=== PATIENT | male | born 1955 | race Caucasian/White ===

== ENCOUNTER 2017-10-02 16:41 | Emergency (ER) | payer MEDICARE, OTHER ==
[2017-10-02 18:31] LABS: ADD MAN DIFF? NO
[2017-10-02 18:32] LABS: HEMATOCRIT 27.2 % (42.0-52.0); HEMOGLOBIN 8.2 g/dl (14.0-18.0); MEAN CORPUSCULAR HEMOGLOBIN 25.4 pg (29.0-33.0); MEAN CORPUSCULAR HGB CONC 30.1 g/dl (32.0-37.0); MEAN CORPUSCULAR VOLUME 84.2 fl (82.0-101.0); MEAN PLATELET VOLUME 8.7 fl (7.4-10.4); PLATELET COUNT 587 10^3/UL (140-415); POSITIVE DIFF @See below; RED BLOOD COUNT 3.23 10^6/ul (4.70-6.10); RED CELL DISTRIBUTION WIDTH 19.1 % (11.5-14.5)
[2017-10-02 18:32] LABS: WHITE BLOOD COUNT 9.2 10^3/ul (4.8-10.8)
[2017-10-02 19:00] LABS: ANION GAP 15 (8-16); BLOOD UREA NITROGEN 15 mg/dl (7-20); CALCIUM 8.7 mg/dl (8.4-10.2); CARBON DIOXIDE 26 mmol/L (21-31); CHLORIDE 107 mmol/L (97-110); CREATININE 0.95 mg/dl (0.61-1.24); GLUCOSE 94 mg/dl (70-220); POTASSIUM 3.9 mmol/L (3.5-5.1); SODIUM 144 mmol/L (135-144)
[2017-10-02 19:43] LABS: ANISOCYTOSIS 1+ (0-0); BASOPHIL #M 0.2 10^3/ul (0.0-0.0); BASOPHILS % (M) 3 % (0-2); EOSINOPHILS % (M) 3 % (0-7); LYMPHOCYTES #M 1.9 10^3/ul (0.8-2.9); LYMPHOCYTES % (M) 21 % (15-51); MONOCYTE #M 0.4 10^3/ul (0.3-0.9); MONOCYTES % (M) 5 % (0-11); PLATELET ESTIMATE INCREASED; POIKILOCYTOSIS 1+ (0-0); POLYCHROMASIA 1+ (0-0); SEGMENTED NEUTROPHILS (M) % 68 % (39-77); SMUDGE%M 1 % (0-0)
[2017-10-02] MEDS: IOHEXOL 300MG/ML 150 ML BTL (20:49)
[2017-10-02] MEDS: SOD CHLORIDE 0.9% 100 ML (20:49)
[2017-10-02] MEDS: morphine 2 MG INJ IV (21:25)
[2017-10-02] MEDS: ONDANSETRON 4 MG INJ IV (23:24)
[2017-10-02] MEDS: KETOROLAC 30 MG INJ IV (23:24)
== END 2017-10-03 09:27 | disposition home or self-care (01) ==
LOC: E/R 16:41
DX: S80.11XA Contusion of right lower leg, initial encounter (principal); J44.9 Chronic obstructive pulmonary disease, unspecified; I10 Essential (primary) hypertension; F17.210 Nicotine dependence, cigarettes, uncomplicated; R40.2142 Coma scale, eyes open, spontaneous, at arrival to emergency department; R40.2252 Coma scale, best verbal response, oriented, at arrival to emergency department; R40.2362 Coma scale, best motor response, obeys commands, at arrival to emergency department; W05.0XXA Fall from non-moving wheelchair, initial encounter; Y92.9 Unspecified place or not applicable; Z96.651 Presence of right artificial knee joint; Z96.641 Presence of right artificial hip joint; Z79.82 Long term (current) use of aspirin
CPT/HCPCS: 71045; 71260; 73510; 73550; 73564; 73590; 80048; 85025; 93005; 93971; 96374; 96375; 99285-25

== ENCOUNTER 2017-11-28 17:22 | Inpatient (IN) | payer MEDICARE, MEDICAID ==
[2017-11-28] MEDS ORDERED: NITROGLYCERIN (SL) 0.4 MG TAB SL ×2 (17:30→20:30)
[2017-11-28 17:41] LABS: ADD MAN DIFF? NO
[2017-11-28 17:43] LABS: BASOPHIL # 0.2 10^3/ul (0.0-0.1); BASOPHILS % 1.9 % (0.0-2.0); EOSINOPHILS # 0.2 10^3/ul (0.0-0.5); EOSINOPHILS % 1.8 % (0.0-7.0); HEMATOCRIT 27.4 % (42.0-52.0); HEMOGLOBIN 8.2 g/dl (14.0-18.0); LYMPHOCYTES # 1.3 10^3/ul (0.8-2.9); LYMPHOCYTES % 14.5 % (15.0-51.0); MEAN CORPUSCULAR HEMOGLOBIN 25.2 pg (29.0-33.0); MEAN CORPUSCULAR HGB CONC 29.9 g/dl (32.0-37.0); MEAN CORPUSCULAR VOLUME 84.3 fl (82.0-101.0); MEAN PLATELET VOLUME 9.4 fl (7.4-10.4); MONOCYTE # 1.2 10^3/ul (0.3-0.9); MONOCYTES % 13.6 % (0.0-11.0); NEUTROPHIL # 5.9 10^3/ul (1.6-7.5); NEUTROPHILS % 67.7 % (39.0-77.0); PLATELET COUNT 443 10^3/UL (140-415); RED BLOOD COUNT 3.25 10^6/ul (4.70-6.10); RED CELL DISTRIBUTION WIDTH 17.9 % (11.5-14.5)
[2017-11-28 17:43] LABS: WHITE BLOOD COUNT 8.8 10^3/ul (4.8-10.8)
[2017-11-28] MEDS: morphine 4 MG/ML VIAL IV (17:48)
[2017-11-28] MEDS: SOD CHLORIDE 0.9% 500 ML IV (17:48)
[2017-11-28] MEDS: ONDANSETRON 4 MG INJ IV ×3 (17:48→21:42)
[2017-11-28] MEDS: DILTIAZEM 25 MG INJ IV (17:49)
[2017-11-28] MEDS: MAGNESIUM SULFATE 2 GM/50 ML 50 ML IVPB (17:49)
[2017-11-28] MEDS: DILTIAZEM-D5W 125MG/125ML DRIP 125 ML IV (17:49)
[2017-11-28] MEDS: ASPIRIN 81 MG TAB PO (17:54)
[2017-11-28 18:06] LABS: BLOOD UREA NITROGEN 15 mg/dl (7-20); CALCIUM 8.7 mg/dl (8.4-10.2); CARBON DIOXIDE 24 mmol/L (21-31); CHLORIDE 101 mmol/L (97-110); CREATININE 0.98 mg/dl (0.61-1.24); GLUCOSE 97 mg/dl (70-220); POTASSIUM 4.1 mmol/L (3.5-5.1)
[2017-11-28 18:10] LABS: INR 0.97
[2017-11-28] MEDS: DILTIAZEM (CD) 180 MG CAP PO (18:33)
[2017-11-28 18:37] LABS: ANION GAP 21 (8-16); SODIUM 142 mmol/L (135-144); TROPONIN-I < 0.012 ng/ml (0.00-0.12)
[2017-11-28] MEDS: HYDROmorphONE 1 MG/5 ML IV SYRINGE IV (18:45)
[2017-11-28] MEDS ORDERED: ONDANSETRON 4 MG INJ IV (19:00)
[2017-11-28] MEDS ORDERED: ACETAMINOPHEN 325 MG TAB PO (19:00)
[2017-11-28] MEDS: hydrALAzine 20 MG INJ IV (19:38)
[2017-11-28] MEDS ORDERED: NACL 0.9% 3 ML SYG IV (20:30)
[2017-11-28 20:50] LABS: MAGNESIUM 1.8 mg/dl (1.7-2.5)
[2017-11-28] MEDS ORDERED: DIAZEPAM 5 MG TAB PO (21:00)
[2017-11-28 21:17] LABS: THYROID STIMULATING HORMONE 0.902 MIU/L (0.465-4.680)
[2017-11-28] MEDS: LIDOCAINE 2% VISC 15 ML CUP PO (21:42)
[2017-11-28] MEDS: LORAZEPAM 2 MG INJ IV (21:42)
[2017-11-28] MEDS: PANTOPRAZOLE IV 80 MG in SOD CHLORIDE 0.9% 100 ML IVPB (21:43)
[2017-11-28] MEDS ORDERED: HYDROmorphONE 4 MG TAB PO (22:00)
[2017-11-28] MEDS: PANTOPRAZOLE IV 80 MG in SOD CHLORIDE 0.9% 100 ML IV (22:08)
[2017-11-28] MEDS: MULTIVITAMINS 10 ML, THIAMINE 100 MG, FOLIC ACID 1 MG in SOD CHLORIDE 0.9% 1,000 ML IVPB (23:30)
[2017-11-28 23:41] LABS: HEMOGLOBIN 8.9 g/dl (14.0-18.0)
[2017-11-29] MEDS: HYDROmorphONE 0.5 MG/0.5 ML SYG IV ×6 (00:24→21:36)
[2017-11-29] MEDS: PANTOPRAZOLE IV 80 MG in SOD CHLORIDE 0.9% 100 ML IV ×3 (00:25→19:30)
[2017-11-29] MEDS ORDERED: DILTIAZEM-D5W 125MG/125ML DRIP 125 ML IV ×2 (00:30)
[2017-11-29] MEDS: AL HYDROX/MG HYDROX/SIMETH 30 ML CUP PO ×3 (01:25→19:23)
[2017-11-29] MEDS ORDERED: DIAZEPAM 5 MG/ML SYG IV (01:30)
[2017-11-29] MEDS: DIAZEPAM 5 MG/ML SYG IV ×2 (01:57→01:58)
[2017-11-29] MEDS: ONDANSETRON 4 MG INJ IV (05:20)
[2017-11-29] MEDS: MULTIVITAMINS 10 ML, THIAMINE 100 MG, FOLIC ACID 1 MG in SOD CHLORIDE 0.9% 1,000 ML IVPB (08:09)
[2017-11-29 08:59] LABS: ADD MAN DIFF? NO
[2017-11-29] MEDS ORDERED: ASPIRIN 81 MG TAB PO (09:00)
[2017-11-29 09:05] LABS: BASOPHIL # 0.1 10^3/ul (0.0-0.1); BASOPHILS % 0.7 % (0.0-2.0); EOSINOPHILS # 0.2 10^3/ul (0.0-0.5); EOSINOPHILS % 1.8 % (0.0-7.0); HEMATOCRIT 27.2 % (42.0-52.0); HEMOGLOBIN 8.1 g/dl (14.0-18.0); LYMPHOCYTES # 0.9 10^3/ul (0.8-2.9); LYMPHOCYTES % 9.6 % (15.0-51.0); MEAN CORPUSCULAR HEMOGLOBIN 25.9 pg (29.0-33.0); MEAN CORPUSCULAR HGB CONC 29.8 g/dl (32.0-37.0); MEAN CORPUSCULAR VOLUME 86.9 fl (82.0-101.0); MEAN PLATELET VOLUME 9.6 fl (7.4-10.4); MONOCYTE # 1.5 10^3/ul (0.3-0.9); MONOCYTES % 16.1 % (0.0-11.0); NEUTROPHIL # 6.5 10^3/ul (1.6-7.5); NEUTROPHILS % 71.3 % (39.0-77.0); PLATELET COUNT 422 10^3/UL (140-415); RED BLOOD COUNT 3.13 10^6/ul (4.70-6.10)
[2017-11-29 09:05] LABS: WHITE BLOOD COUNT 9.1 10^3/ul (4.8-10.8)
[2017-11-29 09:26] LABS: HEMOGLOBIN A1C 5.4 % (0-5.9)
[2017-11-29 09:28] LABS: ALANINE AMINOTRANSFERASE 15 IU/L (13-69); ALBUMIN 3.1 g/dl (3.3-4.9); ALKALINE PHOSPHATASE 108 IU/L (42-121); ANION GAP 15 (8-16); ASPARTATE AMINO TRANSFERASE 20 IU/L (15-46); BILIRUBIN,INDIRECT 0.1 mg/dl (0-1.1); BILIRUBIN,TOTAL 0.1 mg/dl (0.2-1.3); BLOOD UREA NITROGEN 15 mg/dl (7-20); CALCIUM 8.4 mg/dl (8.4-10.2); CARBON DIOXIDE 27 mmol/L (21-31); CHLORIDE 105 mmol/L (97-110); CHOLESTEROL 129 mg/dl (100-200); CREATININE 0.89 mg/dl (0.61-1.24); GLUCOSE 82 mg/dl (70-220); HDL CHOLESTEROL 64 mg/dl (30-78); LDL CHOLESTEROL,CALCULATED 44 mg/dl; POTASSIUM 4.2 mmol/L (3.5-5.1); SODIUM 143 mmol/L (135-144); TOTAL PROTEIN 6.2 g/dl (6.1-8.1); TRIGLYCERIDES 103 mg/dl (0-149)
[2017-11-29 11:46] LABS: AMPHETAMINE/METHAMPHETAMINE Negative (NEGATIVE); COCAINE Negative (NEGATIVE)
[2017-11-29 11:49] LABS: BARBITURATES Positive (NEGATIVE)
[2017-11-29 11:50] LABS: BENZODIAZEPINES Positive (NEGATIVE); CANNABINOIDS Positive (NEGATIVE); OPIATES Positive (NEGATIVE)
[2017-11-29 14:09] LABS: HEMATOCRIT 27.9 % (42.0-52.0); HEMOGLOBIN 8.3 g/dl (14.0-18.0)
[2017-11-29] MEDS: FAMOTIDINE 20 MG INJ IV (15:50)
[2017-11-29] MEDS ORDERED: DILTIAZEM 50 MG INJ IV (20:00)
[2017-11-29 20:30] LABS: HEMATOCRIT 27.3 % (42.0-52.0); HEMOGLOBIN 8.2 g/dl (14.0-18.0)
[2017-11-29] MEDS: CLONIDINE 0.1 MG/24 HR PATCH TRANSDERM (21:35)
[2017-11-29] MEDS: LORAZEPAM 2 MG INJ IV ×2 (21:57→23:46)
[2017-11-30 01:18] LABS: HEMATOCRIT 28.1 % (42.0-52.0); HEMOGLOBIN 8.6 g/dl (14.0-18.0)
[2017-11-30 01:37] LABS: CREATINE KINASE 29 IU/L (23-200)
[2017-11-30] MEDS: HYDROmorphONE 0.5 MG/0.5 ML SYG IV ×2 (01:38→05:31)
[2017-11-30 01:53] LABS: CK-MB 0.86 ng/ml (0.0-2.4); TROPONIN-I < 0.012 ng/ml (0.00-0.12)
[2017-11-30] MEDS: hydrALAzine 20 MG INJ IV ×2 (04:30→08:54)
[2017-11-30] MEDS: PANTOPRAZOLE IV 80 MG in SOD CHLORIDE 0.9% 100 ML IV ×3 (05:44→16:30)
[2017-11-30] MEDS: AL HYDROX/MG HYDROX/SIMETH 30 ML CUP PO ×2 (07:04→18:39)
[2017-11-30] MEDS: HYDROmorphONE 2 MG TAB PO ×3 (08:45→20:42)
[2017-11-30] MEDS: MULTIVITAMINS 10 ML, THIAMINE 100 MG, FOLIC ACID 1 MG in SOD CHLORIDE 0.9% 1,000 ML IVPB (08:55)
[2017-11-30] MEDS: ONDANSETRON 4 MG INJ IV (10:43)
[2017-11-30] MEDS: LOSARTAN 25 MG TAB PO ×2 (12:23→20:41)
[2017-11-30] MEDS: PROPOFOL 20 ML ×2 (17:10→17:41)
[2017-11-30] MEDS ORDERED: hydrALAzine 20 MG INJ IV (17:30)
[2017-11-30] MEDS ORDERED: EPHEDrine SULFATE 50 MG/5 ML SYG IV (17:30)
[2017-11-30] MEDS ORDERED: LABETALOL HCL 20MG INJ IV (17:30)
[2017-11-30] MEDS ORDERED: FENTAnyl 50 MCG/ML VIAL IV ×3 (17:30)
[2017-11-30] MEDS: LORAZEPAM 2 MG INJ IV (22:23)
[2017-11-30 23:18] LABS: HAAIG REFLEX REFLEX FILED
[2017-11-30 23:25] LABS: HEMOGLOBIN 8.3 g/dl (14.0-18.0); MEAN CORPUSCULAR HEMOGLOBIN 25.2 pg (29.0-33.0); MEAN CORPUSCULAR HGB CONC 29.6 g/dl (32.0-37.0); MEAN CORPUSCULAR VOLUME 85.1 fl (82.0-101.0); MEAN PLATELET VOLUME 9.9 fl (7.4-10.4); PLATELET COUNT 354 10^3/UL (140-415); POSITIVE DIFF @See below; RED BLOOD COUNT 3.29 10^6/ul (4.70-6.10); RED CELL DISTRIBUTION WIDTH 17.9 % (11.5-14.5)
[2017-11-30 23:25] LABS: WHITE BLOOD COUNT 6.8 10^3/ul (4.8-10.8)
[2017-11-30 23:43] LABS: ANION GAP 10 (8-16); BLOOD UREA NITROGEN 14 mg/dl (7-20); CALCIUM 8.8 mg/dl (8.4-10.2); CARBON DIOXIDE 26 mmol/L (21-31); CHLORIDE 105 mmol/L (97-110); CREATINE KINASE 29 IU/L (23-200); CREATININE 0.88 mg/dl (0.61-1.24); GLUCOSE 102 mg/dl (70-220); POTASSIUM 4.3 mmol/L (3.5-5.1); SODIUM 137 mmol/L (135-144)
[2017-11-30 23:57] LABS: CK INDEX 3.4
[2017-11-30 23:59] LABS: TROPONIN-I < 0.012 ng/ml (0.00-0.12)
[2017-12-01 00:15] LABS: HEPATITIS B SURFACE ANTIGEN NEGATIVE (NEGATIVE)
[2017-12-01 00:32] LABS: HEPATITIS B CORE ANTIBODY REACTIVE (NEGATIVE)
[2017-12-01 00:33] LABS: HEPATITIS C VIRAL ANTIBODY REACTIVE (NEGATIVE); HIV 1&2 ANTIBODY NEGATIVE (NEGATIVE)
[2017-12-01 01:15] LABS: ADD MAN DIFF? YES
[2017-12-01] MEDS: LORAZEPAM 2 MG INJ IV ×5 (01:19→23:20)
[2017-12-01] MEDS: PANTOPRAZOLE IV 80 MG in SOD CHLORIDE 0.9% 100 ML IV ×3 (02:05→22:23)
[2017-12-01 02:10] LABS: ANISOCYTOSIS 1+ (0-0); BAND NEUTROPHILS #M 0.1 10^3/ul (0.0-0.6); BAND NEUTROPHILS % (M) 2 % (0-4); BASOPHIL #M 0.1 10^3/ul (0.0-0.0); BASOPHILS % (M) 2 % (0-2); EOSINOPHILS % (M) 1 % (0-7); GIANT THROMBO% (M) 3 % (0-0); LYMPHOCYTES #M 0.8 10^3/ul (0.8-2.9); LYMPHOCYTES % (M) 12 % (15-51); METAMYELOCYTES %M 1 % (0-0); MONOCYTE #M 0.9 10^3/ul (0.3-0.9); MONOCYTES % (M) 14 % (0-11); MYELOCYTES % (M) 1 % (0-0); PLATELET ESTIMATE NORMAL; SEG NEUT #M 4.5 10^3/ul (1.6-7.5); SEGMENTED NEUTROPHILS (M) % 66 % (39-77); SMUDGE%M 6 % (0-0)
[2017-12-01] MEDS: HYDROmorphONE 2 MG TAB PO ×4 (03:03→22:22)
[2017-12-01] MEDS: LOSARTAN 25 MG TAB PO ×2 (09:24→22:23)
[2017-12-01] MEDS: MULTIVITAMINS 10 ML, THIAMINE 100 MG, FOLIC ACID 1 MG in SOD CHLORIDE 0.9% 1,000 ML IVPB (09:24)
[2017-12-01] MEDS: AL HYDROX/MG HYDROX/SIMETH 30 ML CUP PO ×2 (09:24→17:32)
[2017-12-01] MEDS ORDERED: AMLODIPINE 5 MG TAB PO (13:00)
[2017-12-01] MEDS: METOPROLOL 25 MG TAB PO (22:23)
[2017-12-02] MEDS: LORAZEPAM 2 MG INJ IV ×3 (02:57→11:04)
[2017-12-02] MEDS: hydrALAzine 20 MG INJ IV (02:57)
[2017-12-02] MEDS: AL HYDROX/MG HYDROX/SIMETH 30 ML CUP PO (02:57)
[2017-12-02] MEDS: HYDROmorphONE 2 MG TAB PO ×3 (04:15→16:00)
[2017-12-02] MEDS: PANTOPRAZOLE IV 80 MG in SOD CHLORIDE 0.9% 100 ML IV ×2 (06:52→17:30)
[2017-12-02 07:41] LABS: URINE DRUG SCREEN RESULT DRUG(S) DETECTED:
[2017-12-02 08:33] LABS: ABNORMAL IP MESSAGE 1; HEMATOCRIT 27.8 % (42.0-52.0); HEMOGLOBIN 8.4 g/dl (14.0-18.0); MEAN CORPUSCULAR HEMOGLOBIN 25.2 pg (29.0-33.0); MEAN CORPUSCULAR HGB CONC 30.2 g/dl (32.0-37.0); MEAN CORPUSCULAR VOLUME 83.5 fl (82.0-101.0); MEAN PLATELET VOLUME 9.7 fl (7.4-10.4); PLATELET COUNT 450 10^3/UL (140-415); POSITIVE DIFF @See below; RED BLOOD COUNT 3.33 10^6/ul (4.70-6.10); RED CELL DISTRIBUTION WIDTH 17.8 % (11.5-14.5)
[2017-12-02 08:33] LABS: WHITE BLOOD COUNT 9.2 10^3/ul (4.8-10.8)
[2017-12-02] MEDS: METOPROLOL 25 MG TAB PO (08:37)
[2017-12-02] MEDS: ACETAMINOPHEN 325 MG TAB PO (08:37)
[2017-12-02] MEDS: LOSARTAN 25 MG TAB PO (08:37)
[2017-12-02 08:39] LABS: ADD MAN DIFF? YES
[2017-12-02] MEDS: MULTIVITAMINS 10 ML, THIAMINE 100 MG, FOLIC ACID 1 MG in SOD CHLORIDE 0.9% 1,000 ML IVPB (08:45)
[2017-12-02 08:52] LABS: ANION GAP 16 (8-16); BLOOD UREA NITROGEN 15 mg/dl (7-20); CALCIUM 9.3 mg/dl (8.4-10.2); CARBON DIOXIDE 23 mmol/L (21-31); CHLORIDE 104 mmol/L (97-110); CREATININE 0.91 mg/dl (0.61-1.24); GLUCOSE 104 mg/dl (70-220); POTASSIUM 3.9 mmol/L (3.5-5.1); SODIUM 139 mmol/L (135-144)
[2017-12-02 10:17] LABS: ANISOCYTOSIS 2+ (0-0); BAND NEUTROPHILS % (M) 1 % (0-4); EOSINOPHILS % (M) 1 % (0-7); GIANT THROMBO% (M) 1 % (0-0); HYPOCHROMASIA 2+ (0-0); LYMPHOCYTES #M 1.4 10^3/ul (0.8-2.9); LYMPHOCYTES % (M) 16 % (15-51); MICROCYTOSIS 1+ (0-0); MONOCYTE #M 1.5 10^3/ul (0.3-0.9); MONOCYTES % (M) 17 % (0-11); PLATELET ESTIMATE INCREASED; POLYCHROMASIA 1+ (0-0); REACTIVE LYMPHOCYTES% (M) 1 % (0-0); SEG NEUT #M 5.9 10^3/ul (1.6-7.5); SEGMENTED NEUTROPHILS (M) % 64 % (39-77); SMUDGE%M 4 % (0-0)
== END 2017-12-02 18:40 | disposition home or self-care (01) | DRG 308 ==
LOC: E/R 17:22 → TEL 18:51
PROC: 0W3P8ZZ Control Bleeding in Gastrointestinal Tract, Via Natural or Artificial Opening Endoscopic (ICD-10-PCS; principal; 2017-11-30 16:56)
DX: I48.0 Paroxysmal atrial fibrillation (principal); K31.811 Angiodysplasia of stomach and duodenum with bleeding; F11.20 Opioid dependence, uncomplicated; K20.9 Esophagitis, unspecified; Z72.0 Tobacco use; Z72.89 Other problems related to lifestyle; D64.9 Anemia, unspecified; G89.4 Chronic pain syndrome; J44.9 Chronic obstructive pulmonary disease, unspecified; R07.9 Chest pain, unspecified
CPT/HCPCS: 36415; 71045; 80048; 80053; 80061; 80306; 80307; 82550; 82553; 83036; 83735; 84443; 84484; 85014; 85018; 85025; 85610; 85730; 86703; 86704; 86709; 86803; 86850; 86900; 86901; 87340; 93005; 93306; 96365; 96375; 96376; 97161; 99291-25

== ENCOUNTER 2017-12-28 09:04 | Emergency (ER) | payer MEDICARE, MEDICAID | END 2017-12-28 12:18 | disposition home or self-care (01) | LOC: FTE 09:04 | DX: S89.91XA Unspecified injury of right lower leg, initial encounter (principal); I10 Essential (primary) hypertension; J44.9 Chronic obstructive pulmonary disease, unspecified; F17.210 Nicotine dependence, cigarettes, uncomplicated; W07.XXXD Fall from chair, subsequent encounter; Y92.9 Unspecified place or not applicable | CPT/HCPCS: 73140; 73510; 73550; 73562; 99284-25 ==